=== PATIENT | female | born 1935 | race Caucasian/White ===

== ENCOUNTER 2018-10-17 10:12 | Day surgery (SDC) | payer MEDICARE, BC, OTHER ==
[~2018-10-17] VITALS: Ht 162.7 cm; Wt 99.9 kg
[2018-10-17 11:03] VITALS: BP 132/64; PULSE 61; TEMP 98.2
[2018-10-17] MEDS ORDERED: SYNTHROID0.2 MG/TAB PO (11:05)
[2018-10-17] MEDS ORDERED: MOBIC15 MG PO (11:05)
[2018-10-17] MEDS ORDERED: PRILOSEC 20MG20 MG PO (11:11)
[2018-10-17] MEDS ORDERED: LASIX 40MG TABL40 MG PO (11:11)
[2018-10-17] MEDS ORDERED: ALLEGRA 180MG180 MG PO (11:12)
[2018-10-17] MEDS ORDERED: HCTZ 25MG TAB25 MG PO (11:12)
[2018-10-17] MEDS ORDERED: FOLIC ACID0.8 MG PO (11:13)
[2018-10-17] MEDS ORDERED: FISH OIL 1000MG1 CAP PO (11:14)
[2018-10-17] MEDS ORDERED: K-DUR20 MEQ PO (11:15)
[2018-10-17] MEDS ORDERED: CRESTOR5 MG PO (11:16)
[2018-10-17] MEDS ORDERED: XANAX 0.5MG0.5 MG PO (11:16)
[2018-10-17] MEDS ORDERED: SYNTHROID 0.0.025 MG PO (11:22)
[2018-10-17] MEDS ORDERED: CEPHALEXIN500 M1 PO (11:24)
[2018-10-17] MEDS ORDERED: MULTAQ400 MG PO (11:26)
[2018-10-17] MEDS ORDERED: ELIQUIS 5MG PO (11:27)
--- NOTE | 2018-10-17 11:45 | NUR ---
PATIENT AND SPOUSE EDUCATED ON DEVICE AND POST OP INSTRUCTIONS. MANUAL PRESSURE HELD ON SITE FOR 5 MINUTES, STERILE DRESSING OF STERI STRIPS AND 4x4s AND PAPER TAPE APPLIED. NO OOZING OR HEMATOMA NOTED. DRESSING CLEAN DRY AND INTACT. PATIENT TOLERATED PROCEDURE WELL. BEDSIDE REPORT GIVEN TO DAVION KELLY. ALL QUESTIONS AND CONCERNS ADDRESSED WITH PATIENT AND SPOUSE.
[2018-10-17 12:00] VITALS: BP 113/59; PULSE 73
--- NOTE | 2018-10-17 12:20 | NUR ---
Discharge instructions given to pt.pt verbalizes understanding.pt escorted out via wheelchair by this nurse.
== END 2018-10-17 13:43 | disposition home or self-care (01) ==
LOC: COL.CAR 10:12
DX: I48.0 Paroxysmal atrial fibrillation (principal); I10 Essential (primary) hypertension; J45.909 Unspecified asthma, uncomplicated; E03.9 Hypothyroidism, unspecified; M19.90 Unspecified osteoarthritis, unspecified site; G89.29 Other chronic pain; Z90.49 Acquired absence of other specified parts of digestive tract; Z90.710 Acquired absence of both cervix and uterus; Z96.641 Presence of right artificial hip joint; Z88.5 Allergy status to narcotic agent; Z88.2 Allergy status to sulfonamides; Z79.82 Long term (current) use of aspirin; E78.5 Hyperlipidemia, unspecified

== ENCOUNTER 2019-02-16 15:28 | Inpatient (IN) | payer MEDICARE, BC, OTHER ==
[~2019-02-16] VITALS: Ht 160 cm; Wt 95.4 kg
[~2019-02-16 15:28] MED LIST: ALLEGRA 180MG180 MG PO; CEPHALEXIN500 M1 PO; CRESTOR5 MG PO; ELIQUIS 5MG PO; FISH OIL 1000MG1 CAP PO; FOLIC ACID0.8 MG PO; HCTZ 25MG TAB25 MG PO; K-DUR20 MEQ PO; LASIX 40MG TABL40 MG PO; MOBIC15 MG PO; MULTAQ400 MG PO; PRILOSEC 20MG20 MG PO; SYNTHROID 0.0.025 MG PO; SYNTHROID0.2 MG/TAB PO; XANAX 0.5MG0.5 MG PO
[2019-03-05 10:12] LABS: BASO % 0.4 % (0.0-2.0); EOS # 0.2 (0.0-0.7); EOS % 2.4 % (0-4.0); GRAN % 72.6 % (42.2-75.2); HEMATOCRIT 44.1 % (37.0-47.0); HEMOGLOBIN 14.4 g/dl (12.5-16.0); LYMPH # 1.3 (1.2-3.4); LYMPH % 15.3 % (20.0-51.0); MEAN CELL VOLUME 93 fl (80.0-100.0); MEAN CORPUSCULAR HEMOGLOBIN 30 pg (27.0-31.0); MEAN CORPUSCULAR HGB CONC 33 g/dl (33.0-37.0); MEAN PLATELET VOLUME 9.9 fl (7.4-10.4); MONO # 0.8 (0.1-0.6); MONO % 9.1 % (1.7-9.3); PLATELET COUNT 171 K/mm3 (130-400); RED BLOOD COUNT 4.74 M/mm3 (4.10-5.30); REDCELL DISTRIBUTION WIDTH-CV 13.2 % (11.5-14.5)
[2019-03-05 10:14] VITALS: BP 138/56; PULSE 59; TEMP 97.6
[2019-03-05 10:19] LABS: INR 1.4 (0.8-3.0); PROTHROMBIN TIME 16.7 SECONDS (9.7-12.8)
[2019-03-05 10:29] LABS: BILIRUBIN,TOTAL 0.6 mg/dL (0.0-1.0); CALCIUM 9.9 mg/dL (8.4-10.2); CREATININE, serum 0.79 (0.52-1.25); MAGNESIUM 1.8 mg/dL (1.6-2.3); POTASSIUM 3.3 mmol/L (3.4-5.0); TOTAL PROTEIN 6.5 gm/dL (6.4-8.2)
[2019-03-05] MEDS ORDERED: DYAZIDE 25 MG-31 CAP PO ×2 (11:02→11:15)
[2019-03-05 11:32] VITALS: BP 132/70; PULSE 90; TEMP 97.7
[2019-03-05 16:17] VITALS: BP 143/62; PULSE 67; TEMP 97.3
--- NOTE | 2019-03-05 18:51 | NUR ---
Patient had ortho consult for RLE, x-rays ordered. She is able to bear weight on the extremity with assistance while getting up and use of rolling walker. Otherwise feels well. is at bedside. Call light and personal items are within reach.
[2019-03-05 19:45] VITALS: BP 97/66; PULSE 71; TEMP 97.8
[2019-03-06] VITALS (7 sets, daily range): BP systolic 90–131; BP diastolic 43–59; PULSE 59–72; TEMP 97.3–98.5
--- NOTE | 2019-03-06 02:54 | NUR ---
PATIENT DOING WELL THROUGHOUT THE NIGHT. C/O MINIMAL PAIN TO RLE. SWELLING TO BOTH ANKLES NOTED. PATIENT UP WITH ASSISTANCE OF WALKER AND WAS ABLE TO BARE WEIGHT ON RLE. INT TO R WRIST IS CLOTTED OFF, REQUEST OF CHARGE NURSE TO CHANGE DURING FREE TIME. SEE ASSESSMENT. NO FURTHER NEEDS AT THIS TIME. WILL CONTINUE TO MONITOR.
[2019-03-06 06:17] LABS: BASO % 0.4 % (0.0-2.0); EOS # 0.2 (0.0-0.7); EOS % 2.7 % (0-4.0); GRAN # 4.5 (1.4-6.5); GRAN % 63.4 % (42.2-75.2); HEMATOCRIT 42.8 % (37.0-47.0); HEMOGLOBIN 13.9 g/dl (12.5-16.0); LYMPH # 1.6 (1.2-3.4); LYMPH % 23.1 % (20.0-51.0); MEAN CELL VOLUME 95 fl (80.0-100.0); MEAN CORPUSCULAR HEMOGLOBIN 31 pg (27.0-31.0); MEAN CORPUSCULAR HGB CONC 33 g/dl (33.0-37.0); MEAN PLATELET VOLUME 9.9 fl (7.4-10.4); MONO # 0.7 (0.1-0.6); MONO % 10.3 % (1.7-9.3); PLATELET COUNT 177 K/mm3 (130-400); RED BLOOD COUNT 4.53 M/mm3 (4.10-5.30); REDCELL DISTRIBUTION WIDTH-CV 13.3 % (11.5-14.5)
[2019-03-06 06:21] LABS: INR 1.4 (0.8-3.0)
[2019-03-06 06:40] LABS: CALCIUM 9.7 mg/dL (8.4-10.2); CREATININE, serum 0.83 (0.52-1.25); MAGNESIUM 2.1 mg/dL (1.6-2.3); POTASSIUM 3.9 mmol/L (3.4-5.0)
--- NOTE | 2019-03-06 08:54 | NUR ---
ABUNDIO met with the patient to discuss discharge plan. The patient lives in [place] with her , Regan (ph#[phone]). She reports independence with ADLs and has a walker, canes, and a handicap accessible home. The patient's PCP is Dr. Baldev Quintero and she receives her medications at the [facility] in [place]. She reports no difficulties obtaining her meds. The patient does not have advanced directives in EMR, but she states that she does have them completed and that Dr. Giron's office should have a copy. ABUNDIO contacted and requested a copy of the DPOA-HC from Dr. Quintero's office. SW received the patient's advanced directives, via fax. The patient's DPOA-HC is Regan. The patient plans to return home with her upon discharge. No anticipated needs at this time.
--- NOTE | 2019-03-06 09:00 | NUR ---
Shaila is going down to cardiopulm for PFT's
--- NOTE | 2019-03-06 20:10 | NUR ---
Shift assessment complete. Pt resting in bed, awake, a&o, cooperative c cares. Pt denies pain or any other c/o at this time. INT patent. Tele in place. Pt denies needs. Call light in reach, will continue to monitor.
[2019-03-07 03:49] VITALS: BP 124/54; PULSE 68; TEMP 97.6
[2019-03-07 06:34] LABS: BASO % 0.6 % (0.0-2.0); EOS # 0.2 (0.0-0.7); EOS % 3.6 % (0-4.0); GRAN # 3.6 (1.4-6.5); GRAN % 68.7 % (42.2-75.2); HEMATOCRIT 41.2 % (37.0-47.0); HEMOGLOBIN 13.5 g/dl (12.5-16.0); LYMPH # 0.8 (1.2-3.4); LYMPH % 15.7 % (20.0-51.0); MEAN CELL VOLUME 94 fl (80.0-100.0); MEAN CORPUSCULAR HEMOGLOBIN 31 pg (27.0-31.0); MEAN CORPUSCULAR HGB CONC 33 g/dl (33.0-37.0); MEAN PLATELET VOLUME 10.1 fl (7.4-10.4); MONO # 0.6 (0.1-0.6); PLATELET COUNT 147 K/mm3 (130-400); RED BLOOD COUNT 4.38 M/mm3 (4.10-5.30); REDCELL DISTRIBUTION WIDTH-CV 13.3 % (11.5-14.5)
[2019-03-07 06:36] LABS: INR 1.3 (0.8-3.0); PROTHROMBIN TIME 15.7 SECONDS (9.7-12.8)
[2019-03-07 07:05] LABS: CALCIUM 9.6 mg/dL (8.4-10.2); CREATININE, serum 0.87 (0.52-1.25); POTASSIUM 4.2 mmol/L (3.4-5.0)
[2019-03-07 08:25] VITALS: BP 145/69; PULSE 61; TEMP 97.7
--- NOTE | 2019-03-07 09:57 | NUR ---
Assessment completed, alert/oriented, vital signs stable, denies pain or discomfort, heart RRR/ dsital pulses are palpable, SR on tele, lungs CTA/ no reps.difficulty, denies any chest discomfort or palpatations, day #3 of amiodarone initiation, she is sitting up eating breakfast and denies other needs
[2019-03-07 11:58] VITALS: BP 154/52; PULSE 56; TEMP 98.2
[2019-03-07 17:01] VITALS: BP 131/51; PULSE 59; TEMP 97.9
--- NOTE | 2019-03-07 19:30 | NUR ---
Sitting with head of bed up. Family in room visiting with patient. Denies pain. Explains that she hurt her right ankle prior to this hospitalization and it only hurts when moved certain ways. Has multiple bruises noted on both arms. No IV site, patient says that this was taken out one day ago. Up independently in room with walker. Gait steady. Denies any chest discomfort or feeling short of air. Denies further needs at this time.
[2019-03-07 19:53] VITALS: BP 106/50; PULSE 57; TEMP 97.7
--- NOTE | 2019-03-07 21:15 | NUR ---
Assessment completed. Patient denies pain. HR regular. Abd soft, nontender. Patient says that she had a bowel movement in her brief. Removed brief, small soft unformed greenish/brown BM. Provided pericare. Dressing to stage 2 pressure ulcers coming off and some of the bowel movement went under dressing. Removed dressing. Two stage 2 pressure ulcers noted. Both wound beds pink and moist. Applied zinc oxide as prescribed. Applied new dressing to site. Patient tolerates without difficulty. Repositioned patient in the bed. Patient denies further needs at this time.
[2019-03-07 23:38] VITALS: BP 151/69; PULSE 63; TEMP 97.8
--- NOTE | 2019-03-08 01:04 | NUR ---
Lying in bed with eyes closed. Respirations even and unlabored. No signs or symptoms of discomfort noted.
--- NOTE | 2019-03-08 03:15 | NUR ---
Patient explains that she is uncomfortable from being in the bed. Ambulates in halls. Returns to room and sits up in recliner. Provided back rub and rubbed patients knees. Patient requests to stay up in chair because it is more comfortable at this time. Denies further needs.
[2019-03-08 03:20] VITALS: BP 139/61; PULSE 56; TEMP 97.6
--- NOTE | 2019-03-08 05:47 | NUR ---
Lying in chair with eyes open. Lab in room collecting lab draw. Patient explains that she has been more comfortable in th chair than the bed. Provided patient with fresh water and cup of coffee. Patient says that she will try to get a couple more hours of sleep. Denies further needs at this time.
[2019-03-08 06:43] LABS: BASO % 0.6 % (0.0-2.0); EOS # 0.3 (0.0-0.7); GRAN % 57.2 % (42.2-75.2); HEMATOCRIT 43.4 % (37.0-47.0); LYMPH # 1.2 (1.2-3.4); LYMPH % 23.6 % (20.0-51.0); MEAN CELL VOLUME 95 fl (80.0-100.0); MEAN CORPUSCULAR HEMOGLOBIN 31 pg (27.0-31.0); MEAN CORPUSCULAR HGB CONC 32 g/dl (33.0-37.0); MEAN PLATELET VOLUME 10.2 fl (7.4-10.4); MONO # 0.7 (0.1-0.6); MONO % 13.2 % (1.7-9.3); PLATELET COUNT 151 K/mm3 (130-400); RED BLOOD COUNT 4.56 M/mm3 (4.10-5.30); REDCELL DISTRIBUTION WIDTH-CV 13.3 % (11.5-14.5)
[2019-03-08 06:47] LABS: INR 1.4 (0.8-3.0); PROTHROMBIN TIME 16.5 SECONDS (9.7-12.8)
[2019-03-08 06:55] LABS: CALCIUM 9.9 mg/dL (8.4-10.2); CREATININE, serum 1.02 (0.52-1.25); POTASSIUM 3.8 mmol/L (3.4-5.0)
[2019-03-08 07:50] VITALS: BP 104/55; PULSE 55; TEMP 97.3
--- NOTE | 2019-03-08 09:10 | NUR ---
Pt awake and alert upon entry, sitting up in recliner finishing breakfast, talkative, no C/O pain at this time, shift assessment complete, left Pt call light in reach.
--- NOTE | 2019-03-08 11:27 | NUR ---
First visit from the fur pointer. No needs right now.
[2019-03-08 12:34] VITALS: BP 167/85; PULSE 61; TEMP 97.8
--- NOTE | 2019-03-08 13:21 | NUR ---
ABUNDIO met with the patient to review discharge plan. The patient reports that she should be able to discharge tomorrow, 03/09, after lunch and will return home with her . ABUNDIO presented and explained the IM form to the patient. The patient verbalized understanding, signed, and she was provided a copy. No additional needs at this time.
[2019-03-08 18:16] VITALS: BP 126/66; PULSE 57; TEMP 97.6
[2019-03-08 19:21] VITALS: BP 121/61; PULSE 57; TEMP 97.6
--- NOTE | 2019-03-08 19:29 | NUR ---
Pt resting in room, no C/O pain during the day, VS have remained stable.
--- NOTE | 2019-03-08 19:29 | NUR ---
Report given to DAVION Boone.
--- NOTE | 2019-03-08 21:15 | NUR ---
Sitting up in chair. Denies pain. Says overall she is feeling good. Is hoping to be able to go home tomorrow. Denies further concerns or needs at this time. Spouse in room with patient.
--- NOTE | 2019-03-08 23:05 | NUR ---
Patient explains that her back is sore from the bed. Provided back massage for patient. Up to bathroom. Voids without difficulty. Returns to bed. Denies further needs.
[2019-03-08 23:18] VITALS: BP 154/74; PULSE 65; TEMP 97.6
[2019-03-09 03:10] VITALS: BP 152/56; PULSE 59; TEMP 97.5
--- NOTE | 2019-03-09 03:15 | NUR ---
Assist patient in ambulating in halls with use of walker. Gait steady. Patient says that she is ready to go home and going "stir crazy" here in the hospital. Patient returns to room, uses restroom, and sits up in chair. Spouse in room. Patient denies further needs at this time.
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
[2019-03-09 06:41] LABS: BASO % 0.4 % (0.0-2.0); EOS # 0.3 (0.0-0.7); EOS % 3.7 % (0-4.0); GRAN # 3.9 (1.4-6.5); GRAN % 57.8 % (42.2-75.2); HEMATOCRIT 45.5 % (37.0-47.0); LYMPH # 1.8 (1.2-3.4); LYMPH % 26.8 % (20.0-51.0); MEAN CELL VOLUME 93 fl (80.0-100.0); MEAN CORPUSCULAR HEMOGLOBIN 31 pg (27.0-31.0); MEAN CORPUSCULAR HGB CONC 33 g/dl (33.0-37.0); MEAN PLATELET VOLUME 10.1 fl (7.4-10.4); MONO # 0.8 (0.1-0.6); MONO % 11.2 % (1.7-9.3); PLATELET COUNT 178 K/mm3 (130-400); RED BLOOD COUNT 4.89 M/mm3 (4.10-5.30)
[2019-03-09 06:56] LABS: CREATININE, serum 1.16 (0.52-1.25); MAGNESIUM 1.9 mg/dL (1.6-2.3); POTASSIUM 3.8 mmol/L (3.4-5.0)
[2019-03-09 07:05] LABS: INR 1.6 (0.8-3.0); PROTHROMBIN TIME 18.4 SECONDS (9.7-12.8)
[2019-03-09 07:48] VITALS: BP 134/66; PULSE 56; TEMP 97.5
[2019-03-09] MEDS ORDERED: PACERONE200 MG PO (10:21)
[2019-03-09 11:22] VITALS: BP 117/70; PULSE 59; TEMP 97.8
--- NOTE | 2019-03-09 13:28 | NUR ---
Pt discharged to home, escorted to entrance, left with spouse via private auto.
== END 2019-03-09 13:29 | disposition home or self-care (01) | DRG 310 ==
LOC: MEDICAL 03-05 08:42
PROVIDERS: ADMIT Internal Medicine Cardiovascular Disease
DX: I48.0 Paroxysmal atrial fibrillation (principal); I10 Essential (primary) hypertension; E03.9 Hypothyroidism, unspecified; E78.5 Hyperlipidemia, unspecified; J45.909 Unspecified asthma, uncomplicated; S93.401A Sprain of unspecified ligament of right ankle, initial encounter; M17.11 Unilateral primary osteoarthritis, right knee
CPT/HCPCS: J3475

== ENCOUNTER 2020-09-06 13:15 | Emergency (ER) | payer MEDICARE, BC, OTHER ==
[~2020-09-06] VITALS: Ht 162.6 cm; Wt 103.6 kg
[~2020-09-06 13:15] MED LIST changes: +DYAZIDE 25 MG-31 CAP PO; +PACERONE200 MG PO
[2020-09-06 13:31] VITALS: TEMP 98
[2020-09-06 14:11] LABS: BASO % 0.8 % (0.0-2.0); EOS # 0.2 (0.0-0.7); EOS % 3.1 % (0-4.0); GRAN % 62.5 % (42.2-75.2); HEMATOCRIT 44.7 % (37.0-47.0); HEMOGLOBIN 14.4 g/dl (12.5-16.0); LYMPH # 1.1 (1.2-3.4); LYMPH % 23.8 % (20.0-51.0); MEAN CELL VOLUME 95 fl (80.0-100.0); MEAN CORPUSCULAR HEMOGLOBIN 30 pg (27.0-31.0); MEAN CORPUSCULAR HGB CONC 32 g/dl (33.0-37.0); MEAN PLATELET VOLUME 9.9 fl (7.4-10.4); MONO # 0.5 (0.1-0.6); MONO % 9.6 % (1.7-9.3); PLATELET COUNT 184 K/mm3 (130-400); RED BLOOD COUNT 4.73 M/mm3 (4.10-5.30); REDCELL DISTRIBUTION WIDTH-CV 13.4 % (11.5-14.5)
[2020-09-06 14:24] LABS: ALANINE AMINOTRANSFERASE 25 U/L (4-34); ALKALINE PHOSPHATASE 64 U/L (50-136); ANION GAP 5 mmol/L (7-16); AST,SGOT 35 U/L (15-37); BILIRUBIN,TOTAL 0.6 mg/dL (0.0-1.0); BLOOD UREA NITROGEN 20 mg/dL (7-17); CALCIUM 9.8 mg/dL (8.4-10.2); CARBON DIOXIDE 36 mmol/L (22-30); CHLORIDE 98 mmol/L (98-107); CREATININE, serum 0.84 (0.52-1.25); GLUCOSE 119 mg/dL (74-106); POTASSIUM 3.6 mmol/L (3.4-5.0); SODIUM 139 mmol/L (137-145); TOTAL PROTEIN 6.7 gm/dL (6.4-8.2)
[2020-09-06 14:49] LABS: TROPONIN-I < 0.012 ng/mL (0.000-0.035)
[2020-09-06 16:35] VITALS: BP 125/84; PULSE 56
[2020-10-02] MEDS ORDERED: PACERONE400 MG PO (11:58)
[2020-10-02] MEDS ORDERED: COUMADIN 5MG5 MG/TAB PO (11:59)
== END 2020-09-06 16:45 | disposition home or self-care (01) ==
LOC: COL.ER 13:15
PROVIDERS: Emergency Medicine
DX: R60.0 Localized edema (principal); I48.0 Paroxysmal atrial fibrillation; Z87.891 Personal history of nicotine dependence; Z88.2 Allergy status to sulfonamides; Z88.5 Allergy status to narcotic agent; Z79.01 Long term (current) use of anticoagulants

== ENCOUNTER → 2020-10-02 | Outpatient (CLI) | payer MEDICARE, BC ==
[~2020-10-02] VITALS: Ht 162.6 cm; Wt 105.5 kg
[~2020-10-02] MED LIST changes: +COUMADIN 5MG5 MG/TAB PO; +PACERONE400 MG PO
[2020-10-02 12:08] VITALS: BP 172/78; PULSE 67
[2020-10-02 13:35] VITALS: BP 114/78; PULSE 54
[2020-10-02 13:45] VITALS: BP 145/88; PULSE 55
[2020-10-02 14:00] VITALS: BP 135/92; PULSE 53
== END ==
LOC: COL.RAD 11:00
DX: M51.36 Other intervertebral disc degeneration, lumbar region (principal); M48.061 Spinal stenosis, lumbar region without neurogenic claudication
CPT/HCPCS: J2250; J2704